=== PATIENT | male | born 1955 | race African-American/Black ===

== ENCOUNTER 2018-10-27 13:02 | Inpatient (IN) | payer OTHER ==
[2018-10-27 16:14] VITALS: BMI 28.8
--- NOTE | 2018-10-27 18:46 | HP ---
CIWA Score Nausea/Vomitin-No Nausea/No Vomiting Muscle Tremors: 1-None Visible, but [place] Anxiety: 3 Agitation: 0-Normal Activity Paroxysmal Sweats: 1-Minimal Palms Moist Orientation: 3-Disoriented Date>2 days Tacttile Disturbances: 0-None Auditory Disturbances: 2-Mild Harshness/Frighten Visual Disturbances: 2-Mild Sensitivity Headache: 0-None Present CIWA-Ar Total Score: 12 - Admission Criteria OASAS Guidelines: Admission for Medically Managed Detox: Requires at least one of the followin. CIWA greater than 12 2. Seizures within the past 24 hours 3. Delirium tremens within the past 24 hours 4. Hallucinations within the past 24 hours 5. Acute intervention needed for co occurring medical disorder 6. Acute intervention needed for co occurring psychiatric disorder 7. Severe withdrawal that cannot be handled at a lower level of care (continued vomiting, continued diarrhea, abnormal vital signs) requiring intravenous medication and/or fluids 8. Admission ROS S - HPI Allergies/Adverse Reactions: Allergies Allergy/AdvReac Type Severity Reaction Status Date / Time Pork/Porcine Containing Allergy Intermediate Rash Verified 10/27/18 15:58 Products tomato [Tomato] Allergy Intermediate Rash Verified 10/27/18 15:58 haloperidol [From Haldol] Allergy Difficulty Verified 10/27/18 16:00 Breathing History of Present Illness: pt here reqyuesting detox from etoh use , reports 1 pint of liquor and 1 x 6- pk beer x 3-4 x/week , reports tremors if not drinking , denies seizures , = blackouts while intoxicated, falls most recently 2 days ago w/ abrasion to fingers of the left hand , using cane for ambulation 06/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 cocaine : 1 gr/day cannabis : daily tobacco : 4x/week denies recent detox utox + thc, walt, met, bzo PMHX : as above , htn ,. hep C no tx pshx : r foot fusion Ivth digit /2 work injury construction 1990 psych : sad on zyprexa in the past , latest taken > 2 mo ago . Exam Limitations: Clinical Condition - Ebola screening Have you traveled outside of the country in the last 21 days: No Have you had contact with anyone from an Ebola affected area: No Do you have a fever: No - Review of Systems Constitutional: See HPI EENT: reports: See HPI Respiratory: reports: No Symptoms reported Cardiac: reports: No Symptoms Reported GI: reports: No Symptoms Reported : reports: No Symptoms Reported Musculoskeletal: reports: See HPI, Joint Pain (chronic knee pain), Muscle Weakness (left sided weakness) Integumentary: reports: Other (left hand abrasion after fall , no pain) Neuro: reports: Pre-Existing Deficit, Tremors, Unsteady Gait Endocrine: reports: No Symptoms Reported Psychiatric: reports: Anxious Patient History - Patient Medical History Hx Anemia: No Hx Asthma: Yes Hx Chronic Obstructive Pulmonary Disease (COPD): No Hx Cancer: No Hx Cardiac Disorders: No Hx Congestive Heart Failure: No Hx Hypertension: Yes Hx Hypercholesterolemia: No Hx Pacemaker: No HX Cerebrovascular Accident: Yes (1993, left side weakness recuperated facial control partialy,hand and leg, ) Hx Seizures: No Hx Dementia: No Hx Diabetes: No Hx Gastrointestinal Disorders: No Hx Liver Disease: No Hx Genitourinary Disorders: No Hx Sexually Transmitted Disorders: No Hx Renal Disease (ESRD): No Hx Thyroid Disease: No Hx Human Immunodeficiency Virus (HIV): No Hx Hepatitis C: Yes (1996, source unknown, denies iv drug injections ) Hx Depression: Yes Hx Suicide Attempt: No Hx Bipolar Disorder: No Hx Schizophrenia: No - Patient Surgical History Past Surgical History: Yes Hx Orthopedic Surgery: Yes (right foot, and toes, release of tendon fibrosis) Anesthesia Reaction: No - PPD History Date: 11/14/13 - Smoking Cessation Smoking history: Current every day smoker Have you smoked in the past 12 months: Yes Aproximately how many cigarettes per day: 4 Hx Chewing Tobacco Use: No Initiated information on smoking cessation: No - Substances abused Alcohol Substance route: Oral Frequency: Daily Amount used: 2 pints of judith adorno, 6pack Age of first use: 13 Date of last use: 10/26/18 Family Disease History - Family Disease History Family Disease History: Diabetes: Grandparent (hypertension), Mother ( hypertension), Other: Grandparent, Mother Admission Physical Exam BHS - Vital Signs Vital Signs: Vital Signs - 24 hr 10/27/18 10/27/18 16:10 18:04 Temperature 97.6 F 97.6 F Pulse Rate 80 80 Respiratory 20 20 Rate Blood Pressure 140/95 140/95 - Physical General Appearance: Yes: Mild Distress, Anxious HEENTM: Yes: Normocephalic, Normal Voice Respiratory: Yes: Lungs Clear, Normal Breath Sounds, No Respiratory Distress, No Accessory Muscle Use Neck: Yes: No masses,lesions,Nodules, Trachea in good position Cardiology: Yes: Regular Rhythm, Regular Rate, S1, S2 Abdominal: Yes: Non Tender, Soft, Protuberent Back: Yes: Normal Inspection Musculoskeletal: Yes: Joint Stiffness (left UE / LE), Muscle weakness (left UE / LE), Other (7using cane for ambulation 2/2 prior cva w/ left-sided weakness) Extremities: Yes: Non-Tender, Other (left foot drop) Neurological: Yes: Alert, Sensory Deficit, Disoriented, Depressed Affect Integumentary: Yes: Warm - Diagnostic (1) Alcohol dependence Current Visit: Yes Status: Active (2) Cannabis dependence Current Visit: Yes Status: Active (3) Cocaine dependence Current Visit: Yes Status: Active Breathalyzer - Breathalyzer Breathalyzer: 0 Urine Drug Screen - Test Device Lot number: [id number] Expiration date: 06/29/20 - Control Is test valid?: Yes - Results Drug screen NEGATIVE: No Urine drug screen results: THC-Marijuana, WALT-Cocaine, MET-Methamphetamine, BZO- Benzodiazepines Inpatient Rehab Admission - Rehab Decision to Admit Inpatient rehab admission?: No
[2018-10-27] MEDS ORDERED: ACETAMINOPHEN 325 MG TABLET (FP) PO PRN ×2 (18:52)
[2018-10-27] MEDS ORDERED: IBUPROFEN 400 MG TABLET (FP) PO PRN (18:52)
[2018-10-27] MEDS ORDERED: MAG HYDROX/AL HYDROX/SIMETH 30 ML UNIT-DOSE CUP PO PRN (18:52)
[2018-10-27] MEDS ORDERED: MELATONIN 5 MG TABLETS PO PRN (18:52)
[2018-10-27] MEDS ORDERED: MAGNESIUM CITRATE 300 ML BOTTLE PO PRN (18:52)
[2018-10-27] MEDS ORDERED: BISMUTH SUBSALICYLATE 524 MG/30 ML UD PO PRN (18:52)
[2018-10-27] MEDS ORDERED: hydrOXYzine PAMOATE 25 MG CAPSULE (FP) PO PRN (18:52)
[2018-10-27] MEDS ORDERED: MENTHOL/PHENOL 1 EACH UD MM PRN (18:52)
[2018-10-27] MEDS ORDERED: MAGNESIUM HYDROX 2400MG/30ML ORAL SUSPENSION 30 ML CUP PO PRN (18:52)
[2018-10-27] MEDS ORDERED: NICOTINE POLACRILEX 2 MG GUM BUC PRN (18:52)
[2018-10-27] MEDS ORDERED: cloNIDine HCL 0.1 MG TABLET PO PRN (18:55)
[2018-10-27] MEDS ORDERED: diazePAM 5 MG TABLET PO PRN (18:56)
[2018-10-27] MEDS: diazePAM 5 MG TABLET PO SCH (22:38)
[2018-10-27] MEDS: THIAMINE HCL 100 MG TABLET (FP) PO SCH (22:38)
[2018-10-28] MEDS: diazePAM 5 MG TABLET PO SCH ×3 (05:50→23:36)
--- NOTE | 2018-10-28 09:55 | PN ---
S CIWA - CIWA Score Nausea/Vomitin-No Nausea/No Vomiting Muscle Tremors: None Anxiety: 3 Agitation: 1-Slight > Activity Paroxysmal Sweats: 3 Orientation: 0-Oriented Tacttile Disturbances: 0-None Auditory Disturbances: 0-None Visual Disturbances: 0-None Headache: 2-Mild CIWA-Ar Total Score: 9 BHS Progress Note (SOAP) Subjective: c/o b// LE pain, sweats, anxiety, and headache. Objective: 10/28/18 09:55 Vital Signs 10/28/18 10/28/18 03:30 06:00 Temperature 98.2 F Pulse Rate 60 Respiratory 18 18 Rate Blood Pressure 118/72 Labs pending. Assessment: 10/28/18 09:55 AOX3, in no acute distress Full ROM, ambulating in the unit. withdrawal symptoms. Plan: continue detox.
[2018-10-28] MEDS: PRENATAL VITAMINS W/ FOLIC ACID TABLET (FP) PO SCH (10:24)
[2018-10-28] MEDS: ASPIRIN 81 MG CHEWABLE TABLETS PO SCH (10:24)
[2018-10-28 10:27] LABS: HEMATOCRIT 37.4 % (35.4-49); HEMOGLOBIN 12.8 GM/dL (11.7-16.9); MCH 32.5 pg (25.7-33.7); MCHC 34.3 g/dl (32.0-35.9); MEAN CELL VOLUME 94.7 fl (80-96); MEAN PLT VOLUME 8.7 fl (7.5-11.1); RBC 3.95 M/mm3 (4.00-5.60); RDW 13.5 % (11.9-15.9); WHITE BLOOD COUNT 3.4 K/mm3 (4.0-10.0)
[2018-10-28 10:28] LABS: BILIRUBIN,TOTAL 0.3 mg/dL (0.2-1); BLOOD UREA NITROGEN 18.1 mg/dL (7-18); CALCIUM 8.3 mg/dL (8.5-10.1); CREATININE 0.8 mg/dL (0.55-1.3); POTASSIUM 3.8 mmol/L (3.5-5.1); TOT PROT 6.1 g/dl (6.4-8.2)
[2018-10-28 11:19] LABS: PLATELET COUNT 177 K/MM3 (134-434)
--- NOTE | 2018-10-28 14:52 | CONSULT ---
[facility] Psychiatric Consult - Data Date of interview: 10/28/18 Admission source: [facility] Identifying data: Readmission to [facility] for this 63 y/o AA male self- referred for detoxification (alcohol, cannabis, cocaine). Examined on . Patient is , a father of one, domiciled, unemployed (disabled) and supported on SSI benefits. Substance Abuse History: Discussed with the patient in this interview. Details in current [facility] report as follows : Smoking history: Current every day smoker. Have you smoked in the past 12 months: Yes. Aproximately how many cigarettes per day: 4. Hx Chewing Tobacco Use: No. Initiated information on smoking cessation: No. - Substances abused. Alcohol. Substance route: Oral. Frequency: Daily. Amount used: 2 pints of judith adorno, 6pack. Age of first use: 13. 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 Psychiatric History: Patient endorses a history of multiple psychiatric hospitalizations since first emotional meltdown in 1996. No recall of names of psychiatric institutions except for [facility]. Diagnosed with Schizoaffective Disorder. Managed with olanzapine (dose not recalled). Mr Carter is currently followed at the [facility]PD clinic in [facility]. Patient admits to a distant history of suicide attempts (overdosing with pills + positioning wheelchair in the path of oncoming traffic). Physical/Sexual Abuse/Trauma History: Patient denies history of abuse. Additional Comment: Urine drug screen results: THC-Marijuana, ALEX-Cocaine, MET- Methamphetamine, BZO-Benzodiazepines. Noted. Mental Status Exam - Mental Status Exam Alert and Oriented to: Time, Place, Person Cognitive Function: Grossly Intact Patient Appearance: Well Groomed Mood: Nervous, Withdrawn Affect: Mood Congruent, Constricted Patient Behavior: Fatigued, Appropriate, Cooperative Speech Pattern: Clear Voice Loudness: Normal Thought Process: Goal Oriented Thought Disorder: Not Present Hallucinations: Denies Suicidal Ideation: Denies Homicidal Ideation: Denies Insight/Judgement: Poor Sleep: Poorly, Difficulty falling asleep Appetite: Fair Gait/Station: Other (walks with a cane) Psychiatric Findings - Problem List ([place] 1, 2,3) (1) Alcohol dependence Current Visit: Yes Status: Chronic (2) Cannabis dependence Current Visit: Yes Status: Chronic (3) Cocaine dependence Current Visit: Yes Status: Chronic (4) Schizoaffective disorder Current Visit: Yes Status: Chronic Comment: As per self-report. (5) Insomnia Current Visit: Yes Status: Chronic - Initial Treatment Plan Initial Treatment Plan: Psychoeducation. Sleep hygiene. Detoxification. Support. AA meetings. Patient declines to resume trazodone. " It makes me feel too drowsy in the morning." Call made to [facility] at [phone] : not available (pharmacy closes at 3 PM as per voice mail). Medications reconciled. Citalopram 10 mg po daily is resumed. Side effects/benefits discussed with patient. Insomnia is addressed with melatonin. Verbal consent granted to . Falls precautions. Observation.
[2018-10-28] MEDS: THIAMINE HCL 100 MG TABLET (FP) PO SCH (23:36)
[2018-10-29] MEDS: PRENATAL VITAMINS W/ FOLIC ACID TABLET (FP) PO SCH (10:38)
[2018-10-29] MEDS: diazePAM 5 MG TABLET PO SCH ×2 (10:39→23:36)
[2018-10-29] MEDS: ASPIRIN 81 MG CHEWABLE TABLETS PO SCH (10:39)
[2018-10-29] MEDS: CITALOPRAM HYDROBROMIDE 10 MG TABLET (FP) PO SCH (10:40)
--- NOTE | 2018-10-29 14:03 | PN ---
S CIWA - CIWA Score Nausea/Vomitin-Mild Nausea/No Vomiting Muscle Tremors: 2 Anxiety: 2 Agitation: 2 Paroxysmal Sweats: 2 Orientation: 0-Oriented Tacttile Disturbances: 0-None Auditory Disturbances: 0-None Visual Disturbances: 0-None Headache: 0-None Present CIWA-Ar Total Score: 9 S Progress Note (SOAP) Subjective: Headache, knees shaking (uses cane) due to withdrawal, interrupted sleep Objective: 10/29/18 14:02 Last Vital Signs Temp Pulse Resp BP Pulse Ox 98.1 F 57 L 18 125/93 10/29/18 11:23 10/29/18 11:23 10/29/18 11:23 10/29/18 11:23 Laboratory Tests 10/28/18 10/28/18 10/28/18 07:50 07:50 07:50 WBC 3.4 L RBC 3.95 L Hgb 12.8 Hct 37.4 MCV 94.7 MCH 32.5 MCHC 34.3 RDW 13.5 Plt Count 177 MPV 8.7 Sodium 142 Potassium 3.8 Chloride 108 H Carbon Dioxide 31 Anion Gap 3 L BUN 18.1 H Creatinine 0.8 Est GFR (CKD-EPI)AfAm 110.19 Est GFR (CKD-EPI)NonAf 95.07 Random Glucose 106 Calcium 8.3 L Total Bilirubin 0.3 AST 52 H ALT 34 Alkaline Phosphatase 101 Total Protein 6.1 L Albumin 3.0 L RPR Titer Nonreactive Labs reviewed Assessment: 10/29/18 14:02 Withdrawal symptoms Plan: Continue detox Encouraged PO water intake
[2018-10-29] MEDS: THIAMINE HCL 100 MG TABLET (FP) PO SCH (23:36)
[2018-10-30] MEDS ORDERED: diazePAM 5 MG TABLET PO SCH (06:00)
--- NOTE | 2018-10-30 08:53 | DS ---
[facility] Detox Discharge Summary Admission Date: 10/27/18 Discharge Date: 10/30/18 - History Present History: Alcohol Dependence, Cannabis Dependence, Cocaine Dependence - Physical Exam Results Vital Signs: Vital Signs Temperature 99.3 F 10/30/18 06:05 Pulse Rate 54 L 10/30/18 06:05 Respiratory Rate 18 10/30/18 06:05 Blood Pressure 153/92 10/30/18 06:05 O2 Sat by Pulse Oximetry (%) - Treatment Hospital Course: Detox Protocol Followed, Detoxed Safely, Responded well, Discharged Condition Good, Rehab Referral Accepted - Medication Discharge Medications: Ambulatory Orders Aspirin [ASA -] 81 mg PO DAILY #30 tab.chew 12/25/12 Hydrochlorothiazide 25 mg PO DAILY #30 tablet 12/25/12 Citalopram Hydrobromide [Celexa -] 10 mg PO DAILY #30 tablet 11/27/13 - AMA Did Patient Leave Against Medical Advice: No (referred to [facility] inpatient rehab)
[2018-10-30] MEDS: CITALOPRAM HYDROBROMIDE 10 MG TABLET (FP) PO SCH (11:02)
[2018-10-30] MEDS: PRENATAL VITAMINS W/ FOLIC ACID TABLET (FP) PO SCH (11:02)
[2018-10-30] MEDS: ASPIRIN 81 MG CHEWABLE TABLETS PO SCH (11:02)
[2018-10-30 17:30] VITALS: BP 105/67; PULSE 59; TEMP 98.4
== END 2018-10-30 19:00 | disposition other institution (70) | DRG 774 ==
LOC: YASAS 13:02 → Y6N 19:16
PROVIDERS: ADMIT Surgery; ATTEND Surgery
PROC: HZ2ZZZZ Detoxification Services for Substance Abuse Treatment (ICD-10-PCS; principal; 2018-10-27)
DX: F10.230 Alcohol dependence with withdrawal, uncomplicated (principal); F14.20 Cocaine dependence, uncomplicated; F13.20 Sedative, hypnotic or anxiolytic dependence, uncomplicated; F15.20 Other stimulant dependence, uncomplicated; F12.20 Cannabis dependence, uncomplicated; F25.9 Schizoaffective disorder, unspecified; G47.00 Insomnia, unspecified; I10 Essential (primary) hypertension; B18.2 Chronic viral hepatitis C; I69.854 Hemiplegia and hemiparesis following other cerebrovascular disease affecting left non-dominant side
CPT/HCPCS: 36415; 80053; 85027; 86480; 86593

== ENCOUNTER 2018-10-30 19:13 | Inpatient (IN) | payer OTHER ==
[2018-10-30] MEDS ORDERED: ACETAMINOPHEN 325 MG TABLET (FP) PO PRN (23:28)
[2018-10-30] MEDS ORDERED: guaiFENesin 200 MG/10 ML 10 ML UNIT-DOSE CUPS PO PRN (23:28)
[2018-10-30] MEDS ORDERED: MENTHOL/PHENOL 1 EACH UD MM PRN (23:28)
[2018-10-30] MEDS ORDERED: P-EPHED 60MG/TRIPROLIDI 2.5MG TABLET PO PRN (23:28)
[2018-10-30] MEDS ORDERED: MAG HYDROX/AL HYDROX/SIMETH 30 ML UNIT-DOSE CUP PO PRN (23:28)
[2018-10-30] MEDS ORDERED: LOPERAMIDE HCL 2 MG CAPSULE PO PRN (23:28)
[2018-10-30] MEDS ORDERED: MAGNESIUM CITRATE 300 ML BOTTLE PO PRN (23:28)
[2018-10-30] MEDS ORDERED: hydrOXYzine PAMOATE 50 MG CAPSULE (FP) PO PRN (23:28)
[2018-10-30] MEDS ORDERED: MAGNESIUM HYDROX 2400MG/30ML ORAL SUSPENSION 30 ML CUP PO PRN (23:28)
--- NOTE | 2018-10-30 23:28 | HP ---
[facility] Rehab Assess/Revision - Admission History Admitted to Rehab from: [facility] Date of Admission to Rehab: 10/30/2018 - Vital signs Vital Signs: Vital Signs Period Temp Pulse Resp BP Sys/Lazar Pulse Ox Last 24 Hr 99.1 F 58 17 153/84 - Findings Detox History & Physical reviewed: Yes Concur with findings: Yes Comments/Additional Findings: Patient detoxed from alcohol w/ co-occurring cocaine, marijuana, and nicotine use disorder. Inpatient Rehab Admission - Rehab Decision to Admit Inpatient rehab admission?: Yes - Initial Determination Are CD services needed?: Yes Free of communicable disease: Yes Not in need of hospitalization: Yes - Rehab Admission Criteria Previous failed treatment: Yes Poor recovery environment: Yes Comorbidities: Yes Lacks judgement: No Patient is meeting Inpatient Rehab admission criteria:: Yes
--- NOTE | 2018-10-31 09:39 | CONSULT ---
[facility] Psychiatric Consult - Data Date of interview: 10/31/18 Admission source: [facility] Identifying data: Patient is a 63 year old male, father of one, unemployed, domiciled, and is supported by [facility]. This is one of multiple admissions to rehab for patient. Patient admitted to for alcohol, cocaine, and marijuana. Substance Abuse History: Smoking Cessation. Smoking history: Current every day smoker. Have you smoked in the past 12 months: Yes. Aproximately how many cigarettes per day: 4. Hx Chewing Tobacco Use: No. Initiated information on smoking cessation: No. - Substances abused. Alcohol. Substance route: Oral. Frequency: Daily. Amount used: 2 pints of judith adorno, 6pack. Age of first use: 13. Date of last use: 10/26/18 Medical History: h/o stroke, hypertension, Hep C Psychiatric History: Patient's first psychiatric contact was in 1990 after he returned home from his duties. He reports having difficulty adjusting back to cilivian life and walked into an emergency room for a psychiatric evaulation. States he was discharged after speaking to a psychiatrist. Throughout the years he reports h/o five psychiatric hospitalizations ( [facility] and [facility]) but is unable to recall the dates. Mr. Carter reports h/o multiple suicide attempts (overdose on pills and wheeling wheelchair into oncoming traffic). Patient reports past history of schizoaffective and states he has been treated with zyprexa in the past. He denies current outpatient psychiatric care and is not currently interested in accepting psychotropic medications. States he is only here to address his history of substance abuse. Patient denies auditory/visual hallucinations. No manic or depressive symptoms noted. At present patient is experiencing difficulty sleeping. Physical/Sexual Abuse/Trauma History: denies. Mental Status Exam - Mental Status Exam Alert and Oriented to: Time, Place, Person Cognitive Function: Good Patient Appearance: Well Groomed Mood: Withdrawn Affect: Appropriate Patient Behavior: Fatigued, Cooperative Speech Pattern: Appropriate Voice Loudness: Normal Thought Process: Goal Oriented Thought Disorder: Not Present Hallucinations: Denies Suicidal Ideation: Denies Homicidal Ideation: Denies Insight/Judgement: Poor Sleep: Poorly Appetite: Fair Muscle strength/Tone: Normal Gait/Station: Other (Patient uses a cane to ambulate) Psychiatric Findings - Problem List ([place] 1, 2,3) (1) Alcohol dependence Current Visit: Yes Status: Chronic (2) Cannabis dependence Current Visit: Yes Status: Chronic (3) Cocaine dependence Current Visit: Yes Status: Chronic (4) Insomnia Current Visit: Yes Status: Acute (5) Schizoaffective disorder Current Visit: No Status: Chronic Comment: As per self-report. - Initial Treatment Plan Initial Treatment Plan: Psychoeducation provided. Rehab in progress. Patient informed that melatonin 5mg is available for insomnia.
[2018-10-31] MEDS: HYDROCHLOROTHIAZIDE 25 MG TABLET (FP) PO SCH (10:12)
[2018-10-31] MEDS: PRENATAL VITAMINS W/ FOLIC ACID TABLET (FP) PO SCH (10:12)
[2018-10-31] MEDS: ASPIRIN 81 MG CHEWABLE TABLETS PO SCH (10:12)
[2018-10-31] MEDS ORDERED: PT OWN MED DRAWER 7, Y5N ONE ×2 (17:04→19:48)
[2018-10-31] MEDS: THIAMINE HCL 100 MG TABLET (FP) PO SCH (21:24)
[2018-10-31] MEDS: IBUPROFEN 400 MG TABLET (FP) PO PRN (21:24)
[2018-11-01] MEDS: NICOTINE POLACRILEX 2 MG GUM BUC PRN (06:31)
[2018-11-01] MEDS: ASPIRIN 81 MG CHEWABLE TABLETS PO SCH (10:03)
[2018-11-01] MEDS: PRENATAL VITAMINS W/ FOLIC ACID TABLET (FP) PO SCH (10:03)
[2018-11-01] MEDS: HYDROCHLOROTHIAZIDE 25 MG TABLET (FP) PO SCH (10:03)
[2018-11-01] MEDS: MELATONIN 5 MG TABLETS PO PRN (21:14)
[2018-11-01] MEDS: IBUPROFEN 400 MG TABLET (FP) PO PRN (21:14)
[2018-11-01] MEDS: THIAMINE HCL 100 MG TABLET (FP) PO SCH (21:14)
[2018-11-02] MEDS: ASPIRIN 81 MG CHEWABLE TABLETS PO SCH (09:58)
[2018-11-02] MEDS: PRENATAL VITAMINS W/ FOLIC ACID TABLET (FP) PO SCH (09:58)
[2018-11-02] MEDS: HYDROCHLOROTHIAZIDE 25 MG TABLET (FP) PO SCH (09:58)
[2018-11-02] MEDS: THIAMINE HCL 100 MG TABLET (FP) PO SCH (21:43)
[2018-11-02] MEDS: MELATONIN 5 MG TABLETS PO PRN (21:43)
[2018-11-02] MEDS: IBUPROFEN 400 MG TABLET (FP) PO PRN (21:44)
[2018-11-03] MEDS: PRENATAL VITAMINS W/ FOLIC ACID TABLET (FP) PO SCH (09:51)
[2018-11-03] MEDS: ASPIRIN 81 MG CHEWABLE TABLETS PO SCH (09:51)
[2018-11-03] MEDS: HYDROCHLOROTHIAZIDE 25 MG TABLET (FP) PO SCH (09:51)
[2018-11-03] MEDS: THIAMINE HCL 100 MG TABLET (FP) PO SCH (21:40)
[2018-11-04] MEDS: PRENATAL VITAMINS W/ FOLIC ACID TABLET (FP) PO SCH (09:44)
[2018-11-04] MEDS: HYDROCHLOROTHIAZIDE 25 MG TABLET (FP) PO SCH (09:44)
[2018-11-04] MEDS: ASPIRIN 81 MG CHEWABLE TABLETS PO SCH (09:44)
[2018-11-04] MEDS: IBUPROFEN 400 MG TABLET (FP) PO PRN (21:17)
[2018-11-04] MEDS: THIAMINE HCL 100 MG TABLET (FP) PO SCH (21:17)
[2018-11-04] MEDS: MELATONIN 5 MG TABLETS PO PRN (21:18)
[2018-11-05] MEDS: PRENATAL VITAMINS W/ FOLIC ACID TABLET (FP) PO SCH (10:01)
[2018-11-05] MEDS: HYDROCHLOROTHIAZIDE 25 MG TABLET (FP) PO SCH (10:01)
[2018-11-05] MEDS: ASPIRIN 81 MG CHEWABLE TABLETS PO SCH (10:01)
[2018-11-05] MEDS: NICOTINE POLACRILEX 2 MG GUM BUC PRN (10:02)
[2018-11-05] MEDS: THIAMINE HCL 100 MG TABLET (FP) PO SCH (21:42)
[2018-11-05] MEDS: MELATONIN 5 MG TABLETS PO PRN (21:42)
[2018-11-05] MEDS: IBUPROFEN 400 MG TABLET (FP) PO PRN (21:43)
[2018-11-06] MEDS: ASPIRIN 81 MG CHEWABLE TABLETS PO SCH (10:17)
[2018-11-06] MEDS: HYDROCHLOROTHIAZIDE 25 MG TABLET (FP) PO SCH (10:18)
[2018-11-06] MEDS: NICOTINE POLACRILEX 2 MG GUM BUC PRN (10:18)
[2018-11-06] MEDS: PRENATAL VITAMINS W/ FOLIC ACID TABLET (FP) PO SCH (10:18)
[2018-11-06] MEDS: MELATONIN 5 MG TABLETS PO PRN (21:21)
[2018-11-06] MEDS: THIAMINE HCL 100 MG TABLET (FP) PO SCH (21:21)
[2018-11-06] MEDS: IBUPROFEN 400 MG TABLET (FP) PO PRN (21:21)
[2018-11-07] MEDS: HYDROCHLOROTHIAZIDE 25 MG TABLET (FP) PO SCH (10:22)
[2018-11-07] MEDS: PRENATAL VITAMINS W/ FOLIC ACID TABLET (FP) PO SCH (10:22)
[2018-11-07] MEDS: NICOTINE POLACRILEX 2 MG GUM BUC PRN ×2 (10:23→21:49)
[2018-11-07] MEDS: ASPIRIN 81 MG CHEWABLE TABLETS PO SCH (10:23)
[2018-11-07] MEDS: IBUPROFEN 400 MG TABLET (FP) PO PRN (21:48)
[2018-11-07] MEDS: MELATONIN 5 MG TABLETS PO PRN (21:49)
[2018-11-07] MEDS: THIAMINE HCL 100 MG TABLET (FP) PO SCH (21:49)
[2018-11-08] MEDS: PRENATAL VITAMINS W/ FOLIC ACID TABLET (FP) PO SCH (10:10)
[2018-11-08] MEDS: ASPIRIN 81 MG CHEWABLE TABLETS PO SCH (10:10)
[2018-11-08] MEDS: HYDROCHLOROTHIAZIDE 25 MG TABLET (FP) PO SCH (10:10)
[2018-11-08] MEDS: NICOTINE POLACRILEX 2 MG GUM BUC PRN ×2 (10:11→21:28)
[2018-11-08] MEDS: IBUPROFEN 400 MG TABLET (FP) PO PRN (21:27)
[2018-11-08] MEDS: MELATONIN 5 MG TABLETS PO PRN (21:27)
[2018-11-08] MEDS: THIAMINE HCL 100 MG TABLET (FP) PO SCH (21:27)
[2018-11-09] MEDS: PRENATAL VITAMINS W/ FOLIC ACID TABLET (FP) PO SCH (10:12)
[2018-11-09] MEDS: ASPIRIN 81 MG CHEWABLE TABLETS PO SCH (10:12)
[2018-11-09] MEDS: HYDROCHLOROTHIAZIDE 25 MG TABLET (FP) PO SCH (10:12)
[2018-11-09] MEDS: NICOTINE POLACRILEX 2 MG GUM BUC PRN ×2 (10:13→21:19)
[2018-11-09] MEDS: IBUPROFEN 400 MG TABLET (FP) PO PRN (21:18)
[2018-11-09] MEDS: MELATONIN 5 MG TABLETS PO PRN (21:18)
[2018-11-09] MEDS: THIAMINE HCL 100 MG TABLET (FP) PO SCH (21:18)
[2018-11-10] MEDS: PRENATAL VITAMINS W/ FOLIC ACID TABLET (FP) PO SCH (10:07)
[2018-11-10] MEDS: ASPIRIN 81 MG CHEWABLE TABLETS PO SCH (10:07)
[2018-11-10] MEDS: HYDROCHLOROTHIAZIDE 25 MG TABLET (FP) PO SCH (10:07)
[2018-11-10] MEDS: NICOTINE POLACRILEX 2 MG GUM BUC PRN (10:09)
[2018-11-10] MEDS: THIAMINE HCL 100 MG TABLET (FP) PO SCH (22:07)
[2018-11-11] MEDS: NICOTINE POLACRILEX 2 MG GUM BUC PRN (09:52)
[2018-11-11] MEDS: ASPIRIN 81 MG CHEWABLE TABLETS PO SCH (09:52)
[2018-11-11] MEDS: HYDROCHLOROTHIAZIDE 25 MG TABLET (FP) PO SCH (09:52)
[2018-11-11] MEDS: PRENATAL VITAMINS W/ FOLIC ACID TABLET (FP) PO SCH (09:52)
[2018-11-11] MEDS: THIAMINE HCL 100 MG TABLET (FP) PO SCH (23:23)
[2018-11-12] MEDS: PRENATAL VITAMINS W/ FOLIC ACID TABLET (FP) PO SCH (10:22)
[2018-11-12] MEDS: ASPIRIN 81 MG CHEWABLE TABLETS PO SCH (10:22)
[2018-11-12] MEDS: NICOTINE POLACRILEX 2 MG GUM BUC PRN (10:22)
[2018-11-12] MEDS: HYDROCHLOROTHIAZIDE 25 MG TABLET (FP) PO SCH (10:22)
[2018-11-12] MEDS: THIAMINE HCL 100 MG TABLET (FP) PO SCH (22:21)
[2018-11-13 06:44] VITALS: BP 140/88; PULSE 45; TEMP 97.9
[2018-11-13] MEDS: HYDROCHLOROTHIAZIDE 25 MG TABLET (FP) PO SCH (09:38)
[2018-11-13] MEDS: ASPIRIN 81 MG CHEWABLE TABLETS PO SCH (09:38)
[2018-11-13] MEDS: PRENATAL VITAMINS W/ FOLIC ACID TABLET (FP) PO SCH (09:38)
--- NOTE | 2018-11-13 09:42 | PN ---
[facility] Progress Note (SOAP) Subjective: PT COMPLETED REHAB AND DISCHARGED TODAY. PATIENT PATICIPATED IN GROUP AND UNIT ACTIVITIES STIPULATED. PT MET WITH HIS COUNSELOR AND HAS BEEN REFERRED TO [facility] ON [address], [place] FOR CD AFTERCARE. PT REPORTS HE HAS PRIMARY CARE AT FOR MEDICAL MANAGEMENT. ALERT O X 3. DENIES S/H/I. Objective: 11/13/18 09:39 Vital Signs 11/13/18 06:43 Temperature 97.9 F Pulse Rate 45 L Respiratory 18 Rate Blood Pressure 140/88 Laboratory Tests 11/02/18 10:00 TB (QFT) Incubation TB Test (QFT) Nil 0.03 TB Test (QFT) Mitogen 3.81 TB Test (QFT) Antigen 0.02 TB Test (QFT) Negative TB Positive Criteria Home Medications Medication Instructions Recorded Aspirin [ASA -] 81 mg PO DAILY #30 tab.chew 12/25/12 Hydrochlorothiazide 25 mg PO DAILY #30 tablet 12/25/12 Citalopram Hydrobromide [Celexa -] 10 mg PO DAILY #30 tablet 11/27/13 Assessment: 11/13/18 09:39 NAD MEDICALLY STABLE DX: Insomnia (Acute) Alcohol dependence (Chronic) Cannabis dependence (Chronic) Cocaine dependence (Chronic) Hypertension (Chronic) Plan: FOLLOW UP WITH CD AFTERCARE RECOMMENDED. FOLLOW UP WITH PCP AT FOR MEDICAL MANAGEMENT WITHIN 1-2 WEEKS AFTER DISCHARGE.
== END 2018-11-13 10:00 | disposition home or self-care (01) | DRG 772 ==
LOC: YASAS 19:13 → Y5N 19:14
PROVIDERS: ADMIT Neuromusculoskeletal Medicine & OMM; ATTEND Neuromusculoskeletal Medicine & OMM
PROC: HZ42ZZZ Group Counseling for Substance Abuse Treatment, Cognitive-Behavioral (ICD-10-PCS; principal; 2018-10-30)
DX: F10.20 Alcohol dependence, uncomplicated (principal); F14.20 Cocaine dependence, uncomplicated; F12.20 Cannabis dependence, uncomplicated; F17.210 Nicotine dependence, cigarettes, uncomplicated; I10 Essential (primary) hypertension; B18.2 Chronic viral hepatitis C; G47.00 Insomnia, unspecified; J45.909 Unspecified asthma, uncomplicated; Z86.73 Personal history of transient ischemic attack (TIA), and cerebral infarction without residual deficits
CPT/HCPCS: 86480

== ENCOUNTER 2018-12-26 14:47 | Inpatient (IN) | payer OTHER ==
[2018-12-26 16:55] VITALS: BMI 29.8
--- NOTE | 2018-12-26 18:31 | HP ---
CIWA Score Nausea/Vomitin-Mild Nausea/No Vomiting Muscle Tremors: 3 Anxiety: 2 Agitation: 2 Paroxysmal Sweats: 2 Orientation: 0-Oriented Tacttile Disturbances: 0-None Auditory Disturbances: 0-None Visual Disturbances: 0-None Headache: 2-Mild CIWA-Ar Total Score: 12 - Admission Criteria OASAS Guidelines: Admission for Medically Managed Detox: Requires at least one of the followin. CIWA greater than 12 2. Seizures within the past 24 hours 3. Delirium tremens within the past 24 hours 4. Hallucinations within the past 24 hours 5. Acute intervention needed for co occurring medical disorder 6. Acute intervention needed for co occurring psychiatric disorder 7. Severe withdrawal that cannot be handled at a lower level of care (continued vomiting, continued diarrhea, abnormal vital signs) requiring intravenous medication and/or fluids 8. Admission ROS [facility] Chief Complaint: alcohol detox Allergies/Adverse Reactions: Allergies Allergy/AdvReac Type Severity Reaction Status Date / Time Pork/Porcine Containing Allergy Intermediate Rash Verified 12/26/18 16:38 Products tomato [Tomato] Allergy Intermediate Rash Verified 12/26/18 16:38 haloperidol [From Haldol] Allergy Difficulty Verified 12/26/18 16:38 Breathing History of Present Illness: 63 yo with h/o CVA, with residual weakness L side, using cane for ambulation, HCV, last here about 2 months ago completed detox and rehab. Does not remember if he went into another detox. Says he relapsed. Lives in own apartment. Says he cooks. Does not work. Brother helps him as support system. alcohol: reports 1 pint of liquor and 1 x 6-pk beer x 3-4 x/week denies seizures , DT's cocaine : 1 gr/day PCP- 1 bag/month cannabis : daily tobacco : 4x/week denies recent detox utox + thc, walt, met, bzo , ANDERS- o alcohol DUR - no meds - Ebola screening Have you traveled outside of the country in the last 21 days: No Have you had contact with anyone from an Ebola affected area: No - Review of Systems Constitutional: No Symptoms Reported EENT: reports: No Symptoms Reported Respiratory: reports: Productive cough Cardiac: reports: No Symptoms Reported GI: reports: No Symptoms Reported : reports: No Symptoms Reported Musculoskeletal: reports: No Symptoms Reported Integumentary: reports: No Symptoms Reported Neuro: reports: No Symptoms reported Endocrine: reports: No Symptoms Reported Hematology: reports: No Symptoms Reported Psychiatric: reports: No Sypmtoms Reported Other Systems: Reviewed and Negative Patient History - Patient Medical History Hx Anemia: No Hx Asthma: Yes Hx Chronic Obstructive Pulmonary Disease (COPD): No Hx Cancer: No Hx Cardiac Disorders: No Hx Congestive Heart Failure: No Hx Hypertension: Yes Hx Hypercholesterolemia: No Hx Pacemaker: No HX Cerebrovascular Accident: Yes (1993, left side weakness recuperated facial control partialy,hand and leg, ) Hx Seizures: No Hx Dementia: No Hx Diabetes: No Hx Gastrointestinal Disorders: No Hx Liver Disease: No Hx Genitourinary Disorders: No Hx Sexually Transmitted Disorders: No Hx Renal Disease (ESRD): No Hx Thyroid Disease: No Hx Human Immunodeficiency Virus (HIV): No Hx Hepatitis C: Yes (1996, source unknown, denies iv drug injections ) Hx Depression: Yes Hx Suicide Attempt: No Hx Bipolar Disorder: No Hx Schizophrenia: No - Patient Surgical History Past Surgical History: Yes Hx Neurologic Surgery: No Hx Cataract Extraction: No Hx Cardiac Surgery: No Hx Lung Surgery: No Hx Breast Surgery: No Hx Breast Biopsy: No Hx Abdominal Surgery: No Hx Appendectomy: No Hx Cholecystectomy: No Hx Genitourinary Surgery: No Hx Section: No Hx Orthopedic Surgery: Yes (right foot, and toes, release of tendon fibrosis) Anesthesia Reaction: No - PPD History Date: 11/14/13 - Smoking Cessation Smoking history: Current every day smoker Have you smoked in the past 12 months: Yes Aproximately how many cigarettes per day: 4 Hx Chewing Tobacco Use: No Initiated information on smoking cessation: Yes 'Breaking Loose' booklet given: 12/26/18 - Substances abused Alcohol Substance route: Oral Frequency: 1-2 times per week Amount used: 2 pints of judith adorno, 6pack Age of first use: 13 Date of last use: 12/25/18 Cocaine Substance route: Inhalation Frequency: 1-3 times last 30 days Amount used: 2 grams Age of first use: 17 Date of last use: 12/25/18 PCP Substance route: Smoking Frequency: 1-3 times last 30 days Amount used: 1 bag Age of first use: 17 Date of last use: 12/25/18 Family Disease History - Family Disease History Family Disease History: Diabetes: Grandparent (hypertension), Mother ( hypertension), Other: Grandparent, Mother Admission Physical Exam BHS - Vital Signs Vital Signs: Vital Signs - 24 hr 12/26/18 16:35 Temperature 97.6 F Pulse Rate 56 L Respiratory 18 Rate Blood Pressure 114/70 - Physical General Appearance: Yes: Disheveled, Irritable HEENTM: Yes: Within Normal Limits, EOMI, Normal ENT Inspection, Normocephalic Respiratory: Yes: Within Normal Limits, Lungs Clear Neck: Yes: Within Normal Limits, No masses,lesions,Nodules Cardiology: Yes: Within Normal Limits, Regular Rhythm, Regular Rate Abdominal: Yes: Within Normal Limits, Normal Bowel Sounds Back: Yes: Within Normal Limits Musculoskeletal: Yes: Within Normal Limits, Other (uses cane for ambulation) Extremities: Yes: Within Normal Limits Neurological: Yes: Within Normal Limits Integumentary: Yes: Within Normal Limits - Diagnostic (1) Alcohol dependence Current Visit: No Status: Chronic (2) Cannabis dependence Current Visit: No Status: Chronic (3) Cocaine dependence Current Visit: No Status: Chronic Breathalyzer - Breathalyzer Breathalyzer: 0 Urine Drug Screen - Test Device Lot number: [id number] Expiration date: 09/29/20 - Control Is test valid?: Yes - Results Drug screen NEGATIVE: No Urine drug screen results: WALT-Cocaine, BZO-Benzodiazepines Inpatient Rehab Admission - Rehab Decision to Admit Inpatient rehab admission?: No
[2018-12-26] MEDS ORDERED: MENTHOL/PHENOL 1 EACH UD MM PRN (18:42)
[2018-12-26] MEDS ORDERED: BISMUTH SUBSALICYLATE 524 MG/30 ML UD PO PRN (18:42)
[2018-12-26] MEDS ORDERED: NICOTINE POLACRILEX 4 MG GUM BUC PRN (18:42)
[2018-12-26] MEDS ORDERED: MAG HYDROX/AL HYDROX/SIMETH 30 ML UNIT-DOSE CUP PO PRN (18:42)
[2018-12-26] MEDS ORDERED: MAGNESIUM HYDROX 2400MG/30ML ORAL SUSPENSION 30 ML CUP PO PRN (18:42)
[2018-12-26] MEDS ORDERED: MELATONIN 5 MG TABLETS PO PRN (18:42)
[2018-12-26] MEDS ORDERED: chlordiazePOXIDE HCL 10 MG CAPSULE PO PRN (18:42)
[2018-12-26] MEDS ORDERED: METHOCARBAMOL 500 MG TABLET PO PRN (18:42)
[2018-12-26] MEDS ORDERED: MAGNESIUM CITRATE 300 ML BOTTLE PO PRN (18:42)
[2018-12-26] MEDS ORDERED: IBUPROFEN 400 MG TABLET (FP) PO PRN (18:42)
[2018-12-26] MEDS ORDERED: ACETAMINOPHEN 325 MG TABLET (FP) PO PRN ×2 (18:42)
[2018-12-26] MEDS ORDERED: hydrOXYzine PAMOATE 25 MG CAPSULE (FP) PO PRN (18:42)
[2018-12-26] MEDS ORDERED: guaiFENesin 200 MG/10 ML 10 ML UNIT-DOSE CUPS PO PRN (18:47)
[2018-12-26] MEDS: ATORVASTATIN CA 10 MG TABLET (FP) PO SCH (21:31)
[2018-12-26] MEDS: THIAMINE HCL 100 MG TABLET (FP) PO SCH (21:32)
[2018-12-26] MEDS: chlordiazePOXIDE HCL 25 MG CAPSULE PO SCH (21:32)
[2018-12-27] MEDS: chlordiazePOXIDE HCL 25 MG CAPSULE PO SCH ×3 (05:48→23:13)
[2018-12-27] MEDS: HYDROCHLOROTHIAZIDE 25 MG TABLET (FP) PO SCH (10:50)
[2018-12-27] MEDS: PRENATAL VITAMINS W/ FOLIC ACID TABLET (FP) PO SCH (10:50)
--- NOTE | 2018-12-27 11:39 | PN ---
S CIWA - CIWA Score Nausea/Vomitin-No Nausea/No Vomiting Muscle Tremors: 3 Anxiety: 2 Agitation: 3 Paroxysmal Sweats: 2 Orientation: 0-Oriented Tacttile Disturbances: 0-None Auditory Disturbances: 0-None Visual Disturbances: 0-None Headache: 0-None Present CIWA-Ar Total Score: 10 S Progress Note (SOAP) Subjective: sweats shakes irritable body aches Objective: 12/27/18 11:37 Vital Signs Temperature 98.8 F 12/27/18 09:36 Pulse Rate 56 L 12/27/18 09:36 Respiratory Rate 20 12/27/18 09:36 Blood Pressure 151/85 12/27/18 09:36 O2 Sat by Pulse Oximetry (%) labs pending aaox3 ambulating no acute distress Assessment: 12/27/18 11:38 withdrawal sx Plan: continue detox increase fluids pending labs
[2018-12-27 12:27] LABS: HEMATOCRIT 38.1 % (35.4-49); MCH 32.2 pg (25.7-33.7); MCHC 34.2 g/dl (32.0-35.9); MEAN CELL VOLUME 94.1 fl (80-96); MEAN PLT VOLUME 8.3 fl (7.5-11.1); PLATELET COUNT 188 K/MM3 (134-434); RBC 4.05 M/mm3 (4.00-5.60); RDW 13.5 % (11.9-15.9); WHITE BLOOD COUNT 3.7 K/mm3 (4.0-10.0)
[2018-12-27 12:33] LABS: BILIRUBIN,TOTAL 0.3 mg/dL (0.2-1); BLOOD UREA NITROGEN 12.3 mg/dL (7-18); CALCIUM 8.5 mg/dL (8.5-10.1); CREATININE 0.8 mg/dL (0.55-1.3); POTASSIUM 3.8 mmol/L (3.5-5.1); TOT PROT 6.1 g/dl (6.4-8.2)
[2018-12-27] MEDS: CITALOPRAM HYDROBROMIDE 10 MG TABLET (FP) PO SCH (15:22)
--- NOTE | 2018-12-27 18:47 | CONSULT ---
[facility] Psychiatric Consult - Data Date of interview: 12/27/18 Admission source: [facility] Identifying data: [employer] approached patient for psychiatric consultation at 6: 30 pm and refused to be seen by content writer. Patient stated, "i'm fine i do not need to see you." Psychiatric consultation refused.
[2018-12-27] MEDS: THIAMINE HCL 100 MG TABLET (FP) PO SCH (23:13)
[2018-12-27] MEDS: ATORVASTATIN CA 10 MG TABLET (FP) PO SCH (23:13)
[2018-12-28] MEDS: chlordiazePOXIDE 5 MG CAPSULE PO SCH ×2 (07:29→12:56)
[2018-12-28] MEDS: PRENATAL VITAMINS W/ FOLIC ACID TABLET (FP) PO SCH (10:38)
[2018-12-28] MEDS: HYDROCHLOROTHIAZIDE 25 MG TABLET (FP) PO SCH (10:38)
[2018-12-28] MEDS: CITALOPRAM HYDROBROMIDE 10 MG TABLET (FP) PO SCH (10:38)
[2018-12-28] MEDS ORDERED: LIDOCAINE 5% TOPICAL PATCH TP ONE (14:39)
--- NOTE | 2018-12-28 14:39 | PN ---
S CIWA - CIWA Score Nausea/Vomitin-No Nausea/No Vomiting Muscle Tremors: 2 Anxiety: 2 Agitation: 2 Paroxysmal Sweats: 2 Orientation: 0-Oriented Tacttile Disturbances: 0-None Auditory Disturbances: 0-None Visual Disturbances: 0-None Headache: 0-None Present CIWA-Ar Total Score: 8 BHS Progress Note (SOAP) Subjective: body aches sweats interrupted sleep Objective: 12/28/18 14:35 Vital Signs Temperature 98.8 F 12/28/18 13:49 Pulse Rate 54 L 12/28/18 13:49 Respiratory Rate 18 12/28/18 13:49 Blood Pressure 151/83 12/28/18 13:49 O2 Sat by Pulse Oximetry (%) Laboratory Tests 12/27/18 12/27/18 12/27/18 10:15 10:15 10:15 WBC 3.7 L RBC 4.05 Hgb 13.0 Hct 38.1 MCV 94.1 MCH 32.2 MCHC 34.2 RDW 13.5 Plt Count 188 MPV 8.3 Sodium 142 Potassium 3.8 Chloride 107 Carbon Dioxide 28 Anion Gap 6 L BUN 12.3 Creatinine 0.8 Est GFR (CKD-EPI)AfAm 110.19 Est GFR (CKD-EPI)NonAf 95.07 Random Glucose 102 Calcium 8.5 Total Bilirubin 0.3 AST 32 ALT 25 Alkaline Phosphatase 103 Total Protein 6.1 L Albumin 3.0 L RPR Titer Nonreactive labs noted aaox3 ambulating no acute distress Assessment: 12/28/18 14:39 withdrawal sx Plan: continue detox increase fluids motrin/tylenol prn lidocaine patch daily
[2018-12-28] MEDS ORDERED: LIDOCAINE PATCH REMOVAL MC SCH (22:00)
[2018-12-28] MEDS: ATORVASTATIN CA 10 MG TABLET (FP) PO SCH (22:50)
[2018-12-28] MEDS: THIAMINE HCL 100 MG TABLET (FP) PO SCH (22:51)
[2018-12-29] MEDS ORDERED: chlordiazePOXIDE HCL 10 MG CAPSULE PO PRN
[2018-12-29] MEDS: chlordiazePOXIDE HCL 10 MG CAPSULE PO SCH ×2 (07:13→13:17)
[2018-12-29] MEDS ORDERED: LIDOCAINE 5% TOPICAL PATCH TP SCH (10:00)
[2018-12-29] MEDS: CITALOPRAM HYDROBROMIDE 10 MG TABLET (FP) PO SCH (10:29)
[2018-12-29] MEDS: PRENATAL VITAMINS W/ FOLIC ACID TABLET (FP) PO SCH (10:29)
[2018-12-29] MEDS: HYDROCHLOROTHIAZIDE 25 MG TABLET (FP) PO SCH (10:30)
--- NOTE | 2018-12-29 13:44 | DS ---
[facility] Detox Discharge Summary Admission Date: 12/26/18 Discharge Date: 12/29/18 - History Present History: Alcohol Dependence, Cannabis Dependence, Cocaine Dependence - Physical Exam Results Vital Signs: Vital Signs Temperature 97.5 F L 12/29/18 12:56 Pulse Rate 58 L 12/29/18 12:56 Respiratory Rate 17 12/29/18 12:56 Blood Pressure 139/60 12/29/18 12:56 O2 Sat by Pulse Oximetry (%) Pertinent Admission Physical Exam Findings: pt arrived in withdrawals Laboratory Tests 12/27/18 12/27/18 12/27/18 10:15 10:15 10:15 WBC 3.7 L RBC 4.05 Hgb 13.0 Hct 38.1 MCV 94.1 MCH 32.2 MCHC 34.2 RDW 13.5 Plt Count 188 MPV 8.3 Sodium 142 Potassium 3.8 Chloride 107 Carbon Dioxide 28 Anion Gap 6 L BUN 12.3 Creatinine 0.8 Est GFR (CKD-EPI)AfAm 110.19 Est GFR (CKD-EPI)NonAf 95.07 Random Glucose 102 Calcium 8.5 Total Bilirubin 0.3 AST 32 ALT 25 Alkaline Phosphatase 103 Total Protein 6.1 L Albumin 3.0 L RPR Titer Nonreactive pt is feeling much better and wants to go to rehab [facility]. aaox3 no s/s of withdrawal no acute distress - Treatment Hospital Course: Detox Protocol Followed, Detoxed Safely, Responded well, Discharged Condition Good, Rehab Referral Accepted - Medication Discharge Medications: Ambulatory Orders Aspirin [ASA -] 81 mg PO DAILY #30 tab.chew 12/25/12 Hydrochlorothiazide 25 mg PO DAILY #30 tablet 12/25/12 Citalopram Hydrobromide [Celexa -] 10 mg PO DAILY #30 tablet 11/27/13 Atorvastatin Calcium 10 mg PO HS 12/26/18 - Diagnosis (1) Major depressive disorder Current Visit: No Status: Active (2) Insomnia Current Visit: No Status: Acute (3) Alcohol dependence Current Visit: Yes Status: Chronic (4) Cannabis dependence Current Visit: Yes Status: Chronic (5) Cocaine dependence Current Visit: Yes Status: Chronic (6) Hypertension Current Visit: No Status: Chronic Qualifiers: Hypertension type: essential hypertension Qualified Code(s): I10 - Essential (primary) hypertension (7) PTSD (post-traumatic stress disorder) Current Visit: No Status: Chronic (8) Schizoaffective disorder Current Visit: No Status: Chronic - AMA Did Patient Leave Against Medical Advice: No
[2018-12-29 17:02] VITALS: BP 140/71; PULSE 51; TEMP 99.1
[2018-12-30] MEDS ORDERED: chlordiazePOXIDE HCL 10 MG CAPSULE PO ONE (05:00)
== END 2018-12-29 19:15 | disposition other institution (70) | DRG 774 ==
LOC: YASAS 14:47 → Y6N 19:19
PROVIDERS: ADMIT Surgery; ATTEND Surgery
PROC: HZ2ZZZZ Detoxification Services for Substance Abuse Treatment (ICD-10-PCS; principal; 2018-12-26)
DX: F10.230 Alcohol dependence with withdrawal, uncomplicated (principal); F14.20 Cocaine dependence, uncomplicated; F12.20 Cannabis dependence, uncomplicated; F16.10 Hallucinogen abuse, uncomplicated; F25.9 Schizoaffective disorder, unspecified; F33.9 Major depressive disorder, recurrent, unspecified; F43.10 Post-traumatic stress disorder, unspecified; I10 Essential (primary) hypertension; G47.00 Insomnia, unspecified; B18.2 Chronic viral hepatitis C; I69.854 Hemiplegia and hemiparesis following other cerebrovascular disease affecting left non-dominant side; Z99.89 Dependence on other enabling machines and devices
CPT/HCPCS: 36415; 80053; 85027; 86593

== ENCOUNTER 2018-12-29 19:45 | Inpatient (IN) | payer OTHER ==
--- NOTE | 2018-12-29 14:24 | HP ---
[facility] Rehab Assess/Revision - Admission History Admitted to Rehab [facility] - Findings Detox History & Physical reviewed: Yes Concur with findings: Yes Inpatient Rehab Admission - Rehab Decision to Admit Inpatient rehab admission?: Yes - Initial Determination Are CD services needed?: Yes Free of communicable disease: Yes Not in need of hospitalization: Yes - Rehab Admission Criteria Previous failed treatment: Yes Poor recovery environment: Yes Comorbidities: Yes Lacks judgement: Yes Patient is meeting Inpatient Rehab admission criteria:: Yes
[~2018-12-29 19:45] MED LIST: ACETAMINOPHEN 325 MG TABLET (FP) PO PRN; IBUPROFEN 400 MG TABLET (FP) PO PRN; LOPERAMIDE HCL 2 MG CAPSULE PO PRN; MAG HYDROX/AL HYDROX/SIMETH 30 ML UNIT-DOSE CUP PO PRN; MAGNESIUM CITRATE 300 ML BOTTLE PO PRN; MAGNESIUM HYDROX 2400MG/30ML ORAL SUSPENSION 30 ML CUP PO PRN; MENTHOL/PHENOL 1 EACH UD MM PRN; P-EPHED 60MG/TRIPROLIDI 2.5MG TABLET PO PRN; guaiFENesin 200 MG/10 ML 10 ML UNIT-DOSE CUPS PO PRN; hydrOXYzine PAMOATE 50 MG CAPSULE (FP) PO PRN
[2018-12-29] MEDS: MELATONIN 5 MG TABLETS PO PRN (21:29)
[2018-12-29] MEDS: THIAMINE HCL 100 MG TABLET (FP) PO SCH (21:29)
[2018-12-29] MEDS: NICOTINE POLACRILEX 4 MG GUM BUC PRN (21:30)
[2018-12-30] MEDS: ASPIRIN 81 MG CHEWABLE TABLETS PO SCH (10:11)
[2018-12-30] MEDS: CITALOPRAM HYDROBROMIDE 20 MG TABLET (FP) PO SCH (10:12)
[2018-12-30] MEDS: NICOTINE 21 MG/24 HOURS TOPICAL PATCH TD SCH (10:12)
[2018-12-30] MEDS: HYDROCHLOROTHIAZIDE 25 MG TABLET (FP) PO SCH (10:12)
[2018-12-30] MEDS: PRENATAL VITAMINS W/ FOLIC ACID TABLET (FP) PO SCH (10:12)
[2018-12-30] MEDS: MELATONIN 5 MG TABLETS PO PRN (21:24)
[2018-12-30] MEDS: THIAMINE HCL 100 MG TABLET (FP) PO SCH (21:24)
[2018-12-30] MEDS: NICOTINE POLACRILEX 4 MG GUM BUC PRN (21:25)
[2018-12-31] MEDS: PRENATAL VITAMINS W/ FOLIC ACID TABLET (FP) PO SCH (10:31)
[2018-12-31] MEDS: NICOTINE POLACRILEX 4 MG GUM BUC PRN (10:31)
[2018-12-31] MEDS: NICOTINE 21 MG/24 HOURS TOPICAL PATCH TD SCH (10:31)
[2018-12-31] MEDS: CITALOPRAM HYDROBROMIDE 20 MG TABLET (FP) PO SCH (10:31)
[2018-12-31] MEDS: ASPIRIN 81 MG CHEWABLE TABLETS PO SCH (10:31)
[2018-12-31] MEDS: HYDROCHLOROTHIAZIDE 25 MG TABLET (FP) PO SCH (10:31)
[2018-12-31] MEDS: THIAMINE HCL 100 MG TABLET (FP) PO SCH (21:42)
[2019-01-01] MEDS: ASPIRIN 81 MG CHEWABLE TABLETS PO SCH (10:38)
[2019-01-01] MEDS: HYDROCHLOROTHIAZIDE 25 MG TABLET (FP) PO SCH (10:39)
[2019-01-01] MEDS: CITALOPRAM HYDROBROMIDE 20 MG TABLET (FP) PO SCH (10:39)
[2019-01-01] MEDS: NICOTINE POLACRILEX 4 MG GUM BUC PRN (10:40)
[2019-01-01] MEDS: PRENATAL VITAMINS W/ FOLIC ACID TABLET (FP) PO SCH (10:40)
[2019-01-01] MEDS: NICOTINE 21 MG/24 HOURS TOPICAL PATCH TD SCH (10:40)
[2019-01-01] MEDS: THIAMINE HCL 100 MG TABLET (FP) PO SCH (21:50)
[2019-01-02 07:31] VITALS: BP 145/90; PULSE 66; TEMP 98
[2019-01-02] MEDS: ASPIRIN 81 MG CHEWABLE TABLETS PO SCH (09:24)
[2019-01-02] MEDS: HYDROCHLOROTHIAZIDE 25 MG TABLET (FP) PO SCH (09:24)
[2019-01-02] MEDS: CITALOPRAM HYDROBROMIDE 20 MG TABLET (FP) PO SCH (09:25)
[2019-01-02] MEDS: NICOTINE 21 MG/24 HOURS TOPICAL PATCH TD SCH (09:26)
[2019-01-02] MEDS: PRENATAL VITAMINS W/ FOLIC ACID TABLET (FP) PO SCH (09:26)
--- NOTE | 2019-01-02 16:08 | DS ---
[facility] Rehab Discharge Summary - [facility] Rehab Discharge Summary Admission Date: 12/29/18 Discharge Date: 01/02/19 - History Present History: Alcohol dependence, Cannabis dependence, Cocaine dependence Additional Comments: Pt is a 63 y/o male who was admitted to rehab from [address] and now declined to continue with rehab treatment. Pertinent Past History: HTN Hypercholesterolemia PTSD Depression - Discharge Physical Exam Vital Signs: Vital Signs Temperature 98.0 F 01/02/19 07:29 Pulse Rate 66 01/02/19 07:29 Respiratory Rate 18 01/02/19 07:29 Blood Pressure 145/90 01/02/19 07:29 O2 Sat by Pulse Oximetry (%) Pertinent Admission Physical Exam Findings: Reviewed and Unremarkable - Treatment Discharge Condition: Discharge condition good Hospital Course: Pt recently admitted and declined treatment. - Medication Discharge Medications: Ambulatory Orders Aspirin [ASA -] 81 mg PO DAILY #30 tab.chew 12/25/12 Hydrochlorothiazide 25 mg PO DAILY #30 tablet 12/25/12 Citalopram Hydrobromide [Celexa -] 10 mg PO DAILY #30 tablet 11/27/13 Atorvastatin Calcium 10 mg PO HS 12/26/18 - Medication-Assisted Treatment (MAT) Medication-Assisted Treatment (MAT): No - Discharge Instructions Diet, activity, other medical instructions: Diet:low salt Activity: oob, ad kristi Other medical instructions:Follow up with Primary care and Mental Health with [facility] within 1 week after discharge. - Diagnosis (1) Alcohol dependence Status: Chronic (2) Cannabis dependence Status: Chronic (3) Cocaine dependence Status: Chronic (4) Hypertension Status: Chronic Qualifiers: Hypertension type: essential hypertension Qualified Code(s): I10 - Essential (primary) hypertension - Follow-up Referral Minutes to complete discharge: 25 - AMA Did Patient Leave Against Medical Advice: Yes
== END 2019-01-02 09:30 | disposition left against medical advice (07) | DRG 770 ==
LOC: YASAS 19:45 → Y5N 19:46
PROVIDERS: ADMIT Neuromusculoskeletal Medicine & OMM; ATTEND Neuromusculoskeletal Medicine & OMM
PROC: HZ42ZZZ Group Counseling for Substance Abuse Treatment, Cognitive-Behavioral (ICD-10-PCS; principal; 2018-12-29)
DX: F10.20 Alcohol dependence, uncomplicated (principal); F14.20 Cocaine dependence, uncomplicated; F12.20 Cannabis dependence, uncomplicated; F43.10 Post-traumatic stress disorder, unspecified; F32.9 Major depressive disorder, single episode, unspecified; I10 Essential (primary) hypertension; E78.00 Pure hypercholesterolemia, unspecified